=== PATIENT | male | born 1955 | race Caucasian/White ===

== ENCOUNTER 2017-08-19 11:39 | Emergency (ER) | payer BC ==
[~2017-08-19] VITALS: Ht 177.8 cm; Wt 100.0 kg
[~2017-08-19 11:39] MED LIST: B COMPLEX1 TA2 PO; CEPHALEXIN500 M1 PO; FLOXIN PO; FORTAMET1000 MG PO; OMEPRAZOLE20 MG PO; PROZAC; THEREMS-M1 TAB PO; VICODIN 5/5001 UDTAB PO
[2017-08-19 11:40] VITALS: TEMP 98.5
[2017-08-19] MEDS ORDERED: ZESTRIL 10MG10 MG PO (11:46)
[2017-08-19] MEDS ORDERED: GLUCOPHAGE1000 MG PO (11:50)
[2017-08-19] MEDS ORDERED: GLUCOTROL10 MG PO (11:51)
[2017-08-19] MEDS ORDERED: PRILOTC (11:51)
[2017-08-19 12:23] LABS: BASO % 0.5 % (0.0-2.0); EOS # 0.3 (0.0-0.7); EOS % 3.5 % (0-4.0); GRAN # 3.9 (1.4-6.5); HEMATOCRIT 41.3 % (42.0-52.0); HEMOGLOBIN 14.3 g/dl (13.5-18.0); LYMPH # 2.6 (1.2-3.4); LYMPH % 34.5 % (20.0-51.0); MEAN CELL VOLUME 88 fl (80.0-100.0); MEAN CORPUSCULAR HEMOGLOBIN 31 pg (27.0-31.0); MEAN CORPUSCULAR HGB CONC 35 g/dl (33.0-37.0); MEAN PLATELET VOLUME 10.1 fl (7.4-10.4); MONO # 0.7 (0.1-0.6); PLATELET COUNT 279 K/mm3 (130-400); RED BLOOD COUNT 4.68 M/mm3 (4.20-5.60); WHITE BLOOD COUNT 7.4 K/mm3 (4.8-10.8)
[2017-08-19 12:33] LABS: ADJUSTED CALCIUM 8.8 mg/dL (8.4-10.2); ALANINE AMINOTRANSFERASE 42 U/L (21-72); ALBUMIN 4.7 gm/dL (3.5-5.0); ALKALINE PHOSPHATASE 63 U/L (50-136); ANION GAP 13 mmol/L (7-16); BILIRUBIN,TOTAL 0.6 mg/dL (0.0-1.0); BLOOD UREA NITROGEN 17 mg/dL (9-20); CALCIUM 9.4 mg/dL (8.4-10.2); CARBON DIOXIDE 20 mmol/L (22-30); CHLORIDE 105 mmol/L (98-107); CREATININE, serum 0.69 mg/dL (0.66-1.25); GLUCOSE 144 mg/dL (74-106); POTASSIUM 4.1 mmol/L (3.4-5.0); SODIUM 137 mmol/L (137-145); TOTAL PROTEIN 7.1 gm/dL (6.4-8.2)
[2017-08-19 12:39] LABS: C-REACTIVE PROTEIN < 0.5 mg/dL (0.0-0.9)
[2017-08-19 12:43] LABS: TROPONIN-I < 0.012 ng/mL (0.000-0.034)
[2017-08-19] MEDS ORDERED: ATIVAN 0.50.5 MG/TAB PO (13:26)
[2017-08-19] MEDS ORDERED: ZOFRAN 4MG T4 MG/TAB PO (13:26)
[2017-08-19 13:36] VITALS: BP 123/75; PULSE 56
== END 2017-08-19 13:39 | disposition home or self-care (01) ==
LOC: COL.ER 11:39
PROVIDERS: Emergency Medicine
DX: R42 Dizziness and giddiness (principal); E11.9 Type 2 diabetes mellitus without complications; I10 Essential (primary) hypertension; K21.9 Gastro-esophageal reflux disease without esophagitis; Z79.84 Long term (current) use of oral hypoglycemic drugs
CPT/HCPCS: J2060; J2405; J7030

== ENCOUNTER 2018-05-23 05:29 | Day surgery (SDC) | payer SELFPAY ==
[2018-05-23] VITALS (8 sets, daily range): BP systolic 108–137; BP diastolic 65–81; PULSE 51–75; TEMP 97.4–98.6
[~2018-05-23] VITALS: Ht 177.8 cm; Wt 101.1 kg
[~2018-05-23 05:29] MED LIST changes: +ATIVAN 0.50.5 MG/TAB PO; +GLUCOPHAGE1000 MG PO; +GLUCOTROL10 MG PO; +PRILOTC; +ZESTRIL 10MG10 MG PO; +ZOFRAN 4MG T4 MG/TAB PO
[2018-05-23] MEDS ORDERED: GLUCOTROL 5M5 MG/TAB PO (06:15)
[2018-05-23] MEDS ORDERED: NORCO 325 MG-7.1 TAB PO (08:44)
== END 2018-05-23 11:01 | disposition home or self-care (01) ==
LOC: SDCO 05:29
DX: K40.91 Unilateral inguinal hernia, without obstruction or gangrene, recurrent (principal); I10 Essential (primary) hypertension; E11.9 Type 2 diabetes mellitus without complications; K21.9 Gastro-esophageal reflux disease without esophagitis; F41.9 Anxiety disorder, unspecified; F32.9 Major depressive disorder, single episode, unspecified; G47.33 Obstructive sleep apnea (adult) (pediatric); Z79.84 Long term (current) use of oral hypoglycemic drugs; Z88.5 Allergy status to narcotic agent; Z91.018 Allergy to other foods; Z87.39 Personal history of other diseases of the musculoskeletal system and connective tissue; Z83.3 Family history of diabetes mellitus; Z82.49 Family history of ischemic heart disease and other diseases of the circulatory system
CPT/HCPCS: C1781; J0690; J1885; J2250; J2405; J2704; J3010; J7030

== ENCOUNTER 2020-01-29 12:17 | Day surgery (SDC) | payer OTHER ==
[~2020-01-29] VITALS: Ht 177.8 cm; Wt 99.1 kg
[~2020-01-29 12:17] MED LIST changes: +GLUCOTROL 5M5 MG/TAB PO; +NORCO 325 MG-7.1 TAB PO
[2020-01-29 12:55] VITALS: BP 152/77; PULSE 69; TEMP 98.6
[2020-01-29] MEDS ORDERED: PRINIVIL5 MG PO (13:02)
[2020-01-29] MEDS ORDERED: ALEVE 220MG220 MG PO (13:03)
[2020-01-29] MEDS ORDERED: VITAMIN B COMPL1 SGL PO (13:04)
[2020-01-29] MEDS ORDERED: FIBER0.52 GM PO (13:06)
--- NOTE | 2020-01-29 13:07 | NUR ---
TO [place] AT 0225- CALL LIGHT IN REACH
[2020-01-29] MEDS ORDERED: MOTRIN 600600 MG/TAB PO (16:53)
[2020-01-29] MEDS ORDERED: COLACE 100100 MG/CAP PO (16:54)
[2020-01-29] MEDS ORDERED: PERCOCET 325 MG1 TA2 PO (16:54)
[2020-01-29 17:48] VITALS: BP 136/73; PULSE 71; TEMP 97.9
[2020-01-29 18:03] VITALS: BP 132/70; PULSE 77
[2020-01-29 18:18] VITALS: BP 132/70; PULSE 68; TEMP 97.9
[2020-01-29 18:33] VITALS: BP 128/69; PULSE 74
== END 2020-01-29 20:31 | disposition home or self-care (01) ==
LOC: SDCO 12:17 → JCC 20:30 → SDCO 20:30 → JCC 20:31
DX: K40.91 Unilateral inguinal hernia, without obstruction or gangrene, recurrent (principal); E11.9 Type 2 diabetes mellitus without complications; I10 Essential (primary) hypertension; K21.9 Gastro-esophageal reflux disease without esophagitis; G47.33 Obstructive sleep apnea (adult) (pediatric); F32.9 Major depressive disorder, single episode, unspecified; F41.9 Anxiety disorder, unspecified; Z82.49 Family history of ischemic heart disease and other diseases of the circulatory system; Z88.5 Allergy status to narcotic agent; Z79.84 Long term (current) use of oral hypoglycemic drugs; Z79.899 Other long term (current) drug therapy
CPT/HCPCS: OP; C1781; J0690; J1100; J1885; J2405; J2550; J2704; J3010; J7030

== ENCOUNTER 2021-04-28 10:45 | Outpatient (RCR) | payer MEDICARE, OTHER ==
[~2021-04-28 10:45] MED LIST changes: +ALEVE 220MG220 MG PO; +COLACE 100100 MG/CAP PO; +FIBER0.52 GM PO; +MOTRIN 600600 MG/TAB PO; +PERCOCET 325 MG1 TA2 PO; +PRINIVIL5 MG PO; +VITAMIN B COMPL1 SGL PO
== END 2021-04-30 ==
LOC: PT.GENESIS
DX: M77.8 Other enthesopathies, not elsewhere classified (principal)

== ENCOUNTER 2021-07-21 09:00 | Outpatient (RCR) | payer MEDICARE, OTHER | END 2021-07-31 | disposition home or self-care (01) | LOC: PT.GENESIS | DX: M77.8 Other enthesopathies, not elsewhere classified (principal) ==

== ENCOUNTER 2021-08-08 15:00 | Outpatient (RCR) | payer MEDICARE, OTHER | END 2021-08-24 09:24 | disposition home or self-care (01) | LOC: PT.GENESIS 15:00 | DX: M25.512 Pain in left shoulder (principal) ==